=== PATIENT | female | born 1990 | race Caucasian/White ===

== ENCOUNTER 2017-07-24 21:17 | Emergency (ER) | payer OTHER ==
[~2017-07-24] VITALS: Ht 170.2 cm; Wt 54.4 kg
[2017-07-25] MEDS ORDERED: Vibramycin100 MG PO (00:42)
[2017-07-25 00:51] LABS: Specimen Source CERVIX
[2017-07-25 01:47] LABS: Candida species (DNA Probe) Negative (NEGATIVE); G. vaginalis (DNA Probe) Negative (NEGATIVE); T. vaginalis (DNA Probe) Positive (NEGATIVE)
[2017-07-26 03:55] LABS: Source Cervix
== END 2017-07-25 01:19 | disposition home or self-care (01) ==
LOC: ER 21:17
PROVIDERS: Emergency Medicine
DX: N73.9 Female pelvic inflammatory disease, unspecified (principal); F17.200 Nicotine dependence, unspecified, uncomplicated; Z79.899 Other long term (current) drug therapy
CPT/HCPCS: 87070; 87076; 87205; 87480; 87491; 87510; 87591; 87660; 99284; J0696

== ENCOUNTER 2019-04-18 21:04 | Emergency (ER) | payer OTHER ==
[~2019-04-18] VITALS: Ht 167.6 cm; Wt 63.5 kg
[~2019-04-18 21:04] MED LIST: Vibramycin100 MG PO
[2019-04-18] MEDS ORDERED: BENZ100A PO (23:01)
== END 2019-04-18 23:27 | disposition home or self-care (01) ==
LOC: ER 21:04
DX: R05 Cough (principal); F17.210 Nicotine dependence, cigarettes, uncomplicated; Z88.0 Allergy status to penicillin
CPT/HCPCS: 71046; 99283-25

== ENCOUNTER 2019-06-12 14:32 | Emergency (ER) | payer OTHER ==
[~2019-06-12] VITALS: Ht 170.2 cm; Wt 65.8 kg
[~2019-06-12 14:32] MED LIST changes: +BENZ100A PO
[2019-06-12 15:04] LABS: Source, Urine Clean Catch
[2019-06-12 15:08] LABS: Bilirubin, Urine Neg (Neg); Blood, Urine 2+ (Neg); Glucose Qualitative, Urine Neg (Neg); Ketones, Urine Neg (Neg); Leukocyte Esterase, Urine 3+ (Neg); Nitrite, Urine Pos (Neg); Protein, Urine 1+ (Neg); Specific Gravity, Urine 1.025 (1.003-1.022); Urobilinogen, Urine NORM (Normal)
[2019-06-12 15:16] LABS: Appearance, Urine Hazy (Clear); Color, Urine Yellow (P-Yellow)
[2019-06-12 15:17] LABS: White Blood Cells, Urine TNTC /hpf (0-5)
[2019-06-12 15:18] LABS: Bacteria Many /hpf; Squamous Epithelial Cells Few /hpf (Few)
[2019-06-12 15:20] LABS: U Amphetamine Screen DETECTED; U Barbituate Screen Not Detected; U Benzodiazapine Screen Not Detected; U Buprenorphine Screen Not Detected; U Cannabinoids Screen Not Detected; U Cocaine Screen Not Detected; U Methadone Screen Not Detected; U Methamphetamine Screen DETECTED; U Opiates Screen DETECTED; U Oxycodone Screen Not Detected; U Phencyclidine Screen Not Detected; U Propoxyphene Screen Not Detected
[2019-06-12 15:37] LABS: BASOPHILS ABSOLUTE AUTO 0.03 K/mm3 (0.00-0.23); BASOPHILS PERCENT AUTO 1 % (0-2); EOSINOPHILS ABSOLUTE AUTO 0.19 K/mm3 (0.00-0.68); EOSINOPHILS PERCENT AUTO 3 % (0-6); Hematocrit 39.4 % (33.0-51.0); Hemoglobin 11.9 g/dL (11.5-16.0); IMMATURE GRAN ABSOLUTE AUTO 0.02 K/mm3 (0.00-0.10); IMMATURE GRAN PERCENT AUTO 0 % (0-1); LYMPHOCYTES ABSOLUTE AUTO 1.03 K/mm3 (0.84-5.20); LYMPHOCYTES PERCENT AUTO 17 % (21-46); MONOCYTES ABSOLUTE AUTO 0.31 K/mm3 (0.16-1.47); MONOCYTES PERCENT AUTO 5 % (4-13); Mean Corpuscular HGB 25.2 pg (26.0-34.0); Mean Corpuscular HGB Conc 30.2 g/dL (31.5-36.5); Mean Corpuscular Volume 84 fL (80-100); Mean Platelet Volume 8.4 fL (9.1-12.4); NEUTROPHILS ABSOLUTE AUTO 4.47 K/mm3 (1.96-9.15); NEUTROPHILS PERCENT AUTO 74 % (41-73); Platelet Count 261 K/mm3 (150-400); RDW Coefficient Variation 14.8 % (11.7-14.2); RDW Standard Deviation 44.7 fL (35.1-46.3); Red Blood Cell Count 4.72 M/mm3 (3.80-5.20); White Blood Cell Count 6.05 K/mm3 (4.00-11.30)
[2019-06-12 16:04] LABS: Ethanol (Alcohol), Blood, Med <3 mg/dL; Salicylate 4.2 mg/dL (2.8-20.0); Thyroxine (T4) 8.7 ug/dL (4.8-13.9)
[2019-06-12 16:12] LABS: Alanine Aminotransfer (ALT/SGP 13 U/L (12-78); Albumin, Blood 3.6 g/dL (3.4-5.0); Albumin/Globulin Ratio 0.9 (0.8-1.8); Alk Phos 80 U/L (50-136); Anion Gap 6 mmol/L (6-16); Aspartate Aminotrans (AST/SGOT 13 U/L (12-37); Bilirubin, Total 0.2 mg/dL (0.1-1.0); Blood Urea Nitrogen 13 mg/dL (8-24); CO2, Blood 24 mmol/L (21-32); Calcium, Blood 8.8 mg/dL (8.5-10.1); Chloride, Blood 109 mmol/L (98-108); Creatinine, Blood 0.76 mg/dL (0.40-1.00); Globulin, Blood 4.1 g/dL (2.2-4.0); Glomerular Filtration Rate >60 (60-); Glucose, Blood 83 mg/dL (70-99); Potassium, Blood 4.8 mmol/L (3.5-5.5); Sodium, Blood 139 mmol/L (136-145); Total Protein, Blood 7.7 g/dL (6.4-8.2)
[2019-06-12 16:19] LABS: Acetaminophen, Random <2.0 ug/mL (10.0-30.0)
[2019-06-12 18:57] LABS: Candida species (DNA Probe) Negative (NEGATIVE); G. vaginalis (DNA Probe) Negative (NEGATIVE); T. vaginalis (DNA Probe) Negative (NEGATIVE)
[2019-06-12] MEDS ORDERED: Keflex500 MG PO (19:06)
[2019-06-12] MEDS ORDERED: Pyridium100 MG PO (19:06)
[2019-06-13 21:06] LABS: CHLAMYDIA TRACHOMATIS, NAA Negative (Negative); NEISSERIA GONORRHOEAE, NAA Negative (Negative)
== END 2019-06-12 20:43 | disposition home or self-care (01) ==
LOC: ER 14:32
PROVIDERS: Emergency Medicine; Physician Assistant
DX: N39.0 Urinary tract infection, site not specified (principal); M79.661 Pain in right lower leg; F15.10 Other stimulant abuse, uncomplicated; F11.10 Opioid abuse, uncomplicated; F17.210 Nicotine dependence, cigarettes, uncomplicated; Z88.0 Allergy status to penicillin
CPT/HCPCS: 80053; 81001; 81025; 84436; 84443; 85025; 87077; 87086; 87186; 87480; 87491; 87510; 87591; 87660; 93971; 96372; 99284-25; G0480; J0696

== ENCOUNTER 2019-08-19 21:34 | Emergency (ER) | payer OTHER ==
[~2019-08-19] VITALS: Ht 167.6 cm; Wt 61.2 kg
[~2019-08-19 21:34] MED LIST changes: +Keflex500 MG PO; +Pyridium100 MG PO
[2019-08-19 23:08] LABS: BASOPHILS ABSOLUTE AUTO 0.03 K/mm3 (0.00-0.23); BASOPHILS PERCENT AUTO 1 % (0-2); EOSINOPHILS ABSOLUTE AUTO 0.23 K/mm3 (0.00-0.68); EOSINOPHILS PERCENT AUTO 4 % (0-6); Hematocrit 37.1 % (33.0-51.0); Hemoglobin 11.7 g/dL (11.5-16.0); IMMATURE GRAN ABSOLUTE AUTO 0.01 K/mm3 (0.00-0.10); IMMATURE GRAN PERCENT AUTO 0 % (0-1); LYMPHOCYTES ABSOLUTE AUTO 1.46 K/mm3 (0.84-5.20); LYMPHOCYTES PERCENT AUTO 27 % (21-46); MONOCYTES ABSOLUTE AUTO 0.37 K/mm3 (0.16-1.47); MONOCYTES PERCENT AUTO 7 % (4-13); Mean Corpuscular HGB 26.4 pg (26.0-34.0); Mean Corpuscular HGB Conc 31.5 g/dL (31.5-36.5); Mean Corpuscular Volume 84 fL (80-100); Mean Platelet Volume 8.1 fL (9.1-12.4); NEUTROPHILS ABSOLUTE AUTO 3.35 K/mm3 (1.96-9.15); NEUTROPHILS PERCENT AUTO 61 % (41-73); Platelet Count 248 K/mm3 (150-400); RDW Coefficient Variation 14.4 % (11.7-14.2); Red Blood Cell Count 4.44 M/mm3 (3.80-5.20); White Blood Cell Count 5.45 K/mm3 (4.00-11.30)
[2019-08-19 23:25] LABS: Alanine Aminotransfer (ALT/SGP 24 U/L (12-78); Albumin, Blood 3.4 g/dL (3.4-5.0); Albumin/Globulin Ratio 0.9 (0.8-1.8); Alk Phos 101 U/L (50-136); Anion Gap 3 mmol/L (6-16); Aspartate Aminotrans (AST/SGOT 20 U/L (12-37); Bilirubin, Total 0.1 mg/dL (0.1-1.0); Blood Urea Nitrogen 9 mg/dL (8-24); Bun/Creatinine Ratio 13.3 (12.0-20.0); CO2, Blood 31 mmol/L (21-32); Calcium, Blood 8.9 mg/dL (8.5-10.1); Chloride, Blood 104 mmol/L (98-108); Creatinine, Blood 0.68 mg/dL (0.40-1.00); Globulin, Blood 3.9 g/dL (2.2-4.0); Glomerular Filtration Rate >60 (60-); Glucose, Blood 106 mg/dL (70-99); Sodium, Blood 138 mmol/L (136-145); Total Protein, Blood 7.3 g/dL (6.4-8.2)
[2019-08-20] MEDS ORDERED: KEFLEX500 MG PO (00:21)
== END 2019-08-20 00:49 | disposition home or self-care (01) ==
LOC: ER 21:34
PROVIDERS: Nurse Practitioner
DX: L03.113 Cellulitis of right upper limb (principal); F20.9 Schizophrenia, unspecified; F17.200 Nicotine dependence, unspecified, uncomplicated; Z88.0 Allergy status to penicillin
CPT/HCPCS: 73090; 76882; 80053; 85025; 93971; 96365; 99284-25; J0696

== ENCOUNTER 2019-10-26 16:15 | Emergency (ER) | payer OTHER ==
[~2019-10-26] VITALS: Ht 160 cm; Wt 61.2 kg
[~2019-10-26 16:15] MED LIST changes: +BENADRYL25 MG PO; +KEFLEX500 MG PO; +Monodox100 MG PO; +Pyridium200 MG PO; +SELSUN BLUE325 ML PO
== END 2019-10-26 19:45 | disposition left against medical advice (07) ==
LOC: ER 16:15
DX: G43.909 Migraine, unspecified, not intractable, without status migrainosus (principal); F17.210 Nicotine dependence, cigarettes, uncomplicated; Z88.0 Allergy status to penicillin
CPT/HCPCS: 70450; 96372; 99284-25; J0780; J1885; Q0163

== ENCOUNTER 2020-11-04 09:51 | Emergency (ER) | payer SELFPAY ==
[~2020-11-04] VITALS: Ht 167.6 cm; Wt 59.0 kg
== END 2020-11-04 10:20 | disposition left against medical advice (07) ==
LOC: ER 09:51
DX: Z00.00 Encounter for general adult medical examination without abnormal findings (principal); Z53.21 Procedure and treatment not carried out due to patient leaving prior to being seen by health care provider; Z88.0 Allergy status to penicillin; F17.210 Nicotine dependence, cigarettes, uncomplicated
CPT/HCPCS: 99284